=== PATIENT | female | born 1960 | race Caucasian/White ===

== ENCOUNTER 2018-06-03 19:26 | Emergency (ER) | payer BC ==
[~2018-06-03] VITALS: Ht 160 cm; Wt 92.0 kg
--- NOTE | 2018-06-03 19:58 | NUR ---
pt presents to ED with c/o epigastric pain x 1 year that she states gets worse every few weeks then diminishes. pt reports pain has flared again today. pt reports having a thorough GI workup including endoscopy for this complaint, with no findings so far. bp and spo2 monitors placed, call light in reach, awaiting MD and orders at this time.
--- NOTE | 2018-06-03 21:00 | NUR ---
ERP Jessee at bedside to assess pt, awaiting orders at this time.
[2018-06-03 21:44] VITALS: BP 170/100
--- NOTE | 2018-06-03 21:44 | NUR ---
LATE ENTRY FOR 06/04 2143: PT GIVEN DC INSTRUCTIONS, PT A&O, RESPS EVEN AND UNLABORED. DC BP 170/100 REVIEWED WITH ERP ANA, PT DENIES HEADACHE, CP/SOB. PT STATES "MY BLOOD PRESSURE IS ALWAYS THAT HIGH WHEN I'M AT THE DOCTOR, IT'S BECAUSE I'M IN PAIN." ERP OK'D RN TO DC PT. PT AMB TO DC WITH STEADY GAIT, ACCOMPANIED BY .
== END 2018-06-03 21:46 | disposition home or self-care (01) ==
LOC: ED 21:20
DX: G89.29 Other chronic pain (principal); R10.13 Epigastric pain
CPT/HCPCS: 93005; 99283

== ENCOUNTER 2018-06-08 09:56 | Emergency (ER) | payer BC ==
[~2018-06-08] VITALS: Ht 160 cm; Wt 95.0 kg
--- NOTE | 2018-06-08 11:44 | NUR ---
PT AMBULATED TO ROOM WITH STEADY GAIT. PT REPORTS EPIGASTRIC PAIN OFF AND ON FOR A LONG TIME. REPORTS DIZZINESS SINCE LAST NIGHT. REPORTS FALLING AND HITTING RIGHT EYE. SMALL BRUISE AND ABRASION ABOVE RIGHT EYE. C/O BACK ACH AND CRAMER. PT IS ALERT, ORIENTED, WITH NAD.
--- NOTE | 2018-06-08 12:46 | NUR ---
UA sent to lab. No other needs.
[2018-06-08 12:52] LABS: BASOPHILS # (AUTO) 0.05 x10^3/uL (0-0.1); BASOPHILS % (AUTO) 0 % (0-1); EOSINOPHILS % (AUTO) 2 % (1-7); LYMPHOCYTES % (AUTO) 16 % (22-44); MD NO; MEAN CORPUSCULAR HEMOGLOBIN 27.9 pg (27.0-34.8); MEAN CORPUSCULAR VOLUME 87.1 fL (80-100); MEAN PLATELET VOLUME 10.6 fL (7.4-10.4); MONOCYTES # (AUTO) 0.62 x10^3/uL (0.2-0.8); MONOCYTES % (AUTO) 5 % (2-9); NEUTROPHILS # (AUTO) 8.95 x10^3/uL (1.8-6.8); NEUTROPHILS % (AUTO) 77 % (42-75); PLATELET COUNT 281 x10^3/uL (130-400); RED BLOOD COUNT 4.56 x10^6/uL (3.82-5.3); RED CELL DISTRIBUTION WIDTH 14.1 % (9.6-15.2)
[2018-06-08 13:08] LABS: ALBUMIN 3.9 g/dL (3.4-5.0); ANION GAP 6 mmol/L (5-15); CALCIUM 9.4 mg/dL (8.5-10.1); CHLORIDE 115 mmol/L (98-107)
[2018-06-08 13:18] LABS: MICROSCOPIC INDICATED
[2018-06-08 13:21] LABS: ALANINE AMINOTRANSFERASE 20 U/L (12-78); ALKALINE PHOSPHATASE 93 U/L (45-117); BILIRUBIN,TOTAL 0.9 mg/dL (0.2-1.0); CREATININE 0.75 mg/dL (0.55-1.02); FREE T4 (FREE THYROXINE) 1.05 ng/dL (0.76-1.46); TOTAL PROTEIN 7.2 g/dL (6.4-8.2)
[2018-06-08 13:26] LABS: CULTURE INDICATED? NO
--- NOTE | 2018-06-08 13:36 | NUR ---
Pt is off the floor to radiology.
--- NOTE | 2018-06-08 13:46 | NUR ---
PT IS BACK FROM RADIOLOGY. PT AMBULATED TO THE BATHROOM WITH STEADY GAIT.
[2018-06-08 15:07] VITALS: BP 158/95
--- NOTE | 2018-06-08 15:26 | NUR ---
Patient given discharge instructions and they have confirmed that they understand the instructions. Patient ambulatory with steady gait.
== END 2018-06-08 15:28 | disposition home or self-care (01) ==
LOC: ED 12:44
DX: G89.29 Other chronic pain (principal); R10.13 Epigastric pain; R42 Dizziness and giddiness; I10 Essential (primary) hypertension
CPT/HCPCS: 36415; 70450; 80053; 81001; 83690; 84439; 84443; 85025; 93005; 99284

== ENCOUNTER 2018-07-09 10:31 | Emergency (ER) | payer BC ==
[~2018-07-09] VITALS: Ht 160 cm; Wt 97.7 kg
--- NOTE | 2018-07-09 10:54 | NUR ---
Pt ambulates with steady gait and balance to room from triage.
--- NOTE | 2018-07-09 10:59 | NUR ---
Pt resting on [facility] talking with ED PA. Pt c/o "three days of upper abdominal pain, hurts with moving, walking, not with eating, but I am not hungry." Pt's spouse at bedside. Per pt, "I saw Dr. Vera, on the I am suppose to do a gastric emptying study, and he said I will probably have to have an exploratory surgery. This is a reoccuring issue, it started over a year ago and I have had to come back at least 10 times." NADN. All safety measurs in place. Call light within reach. Pt connected to monitoring manager, NIBP, and continous pulse ox. Pt denies diarrhea, cp, sob, trauma, or syncope.
[2018-07-09] MEDS ORDERED: ZOLP10TA5 PO (11:06)
[2018-07-09] MEDS ORDERED: OMEP40CA6 PO (11:06)
[2018-07-09] MEDS ORDERED: LOSA25TA25 PO (11:06)
[2018-07-09] MEDS ORDERED: HYDROmorphone 1 MG/ML, 1ML VIAL ONE (11:09)
[2018-07-09] MEDS ORDERED: ONDANSETRON 2MG/ML, 2ML ONE (11:09)
[2018-07-09] MEDS ORDERED: HYDROmorphone 2 MG/ML, 1ML IVPush PRN (11:30)
[2018-07-09] MEDS ORDERED: ONDANSETRON 2MG/ML, 2ML IVPush ONE (11:30)
[2018-07-09 11:41] LABS: BASOPHILS # (AUTO) 0.06 x10^3/uL (0-0.1); BASOPHILS % (AUTO) 1 % (0-1); EOSINOPHILS # (AUTO) 0.06 x10^3/uL (0-0.4); EOSINOPHILS % (AUTO) 1 % (1-7); LYMPHOCYTES # (AUTO) 1.41 x10^3/uL (1-3.4); LYMPHOCYTES % (AUTO) 12 % (22-44); MD NO; MEAN CORPUSCULAR HEMOGLOBIN 27.7 pg (27.0-34.8); MEAN CORPUSCULAR HGB CONC 32.1 g/dL (32.4-35.8); MEAN CORPUSCULAR VOLUME 86.3 fL (80-100); MEAN PLATELET VOLUME 10.9 fL (7.4-10.4); MONOCYTES # (AUTO) 0.47 x10^3/uL (0.2-0.8); MONOCYTES % (AUTO) 4 % (2-9); NEUTROPHILS # (AUTO) 9.89 x10^3/uL (1.8-6.8); NEUTROPHILS % (AUTO) 83 % (42-75); PLATELET COUNT 335 x10^3/uL (130-400); RED BLOOD COUNT 4.38 x10^6/uL (3.82-5.3)
[2018-07-09 11:49] LABS: ALANINE AMINOTRANSFERASE 17 U/L (12-78); ALBUMIN 3.8 g/dL (3.4-5.0); ANION GAP 6 mmol/L (5-15); CALCIUM 8.7 mg/dL (8.5-10.1); CHLORIDE 110 mmol/L (98-107); CREATININE 0.92 mg/dL (0.55-1.02)
[2018-07-09 11:53] LABS: ALKALINE PHOSPHATASE 89 U/L (45-117); BILIRUBIN,TOTAL 0.4 mg/dL (0.2-1.0); TOTAL PROTEIN 6.9 g/dL (6.4-8.2)
--- NOTE | 2018-07-09 12:39 | NUR ---
TESSA RN - PT RESTING ON [facility]. FAMILY AT [facility]. CALL LIGHT IN REACH. CP MONITORS IN PLACE. ALL COCNERNS ADRESSED.
[2018-07-09 12:51] LABS: MICROSCOPIC NOT IND
[2018-07-09 12:58] LABS: CULTURE INDICATED? NO
--- NOTE | 2018-07-09 13:28 | NUR ---
Patient given discharge instructions and they have confirmed that they understand the instructions. Patient ambulatory with steady gait. Pt left with all personal belongings, discharge paperwork, and prescriptions.
[2018-07-09 13:29] VITALS: BP 148/82
== END 2018-07-09 14:14 | disposition home or self-care (01) ==
LOC: ED 10:58
DX: R10.13 Epigastric pain (principal); R11.0 Nausea; I10 Essential (primary) hypertension
CPT/HCPCS: 36415; 80053; 81003; 83690; 85025; 96374; 96375; 99283; J1170; J2405

== ENCOUNTER 2018-07-10 07:42 | Emergency (ER) | payer BC ==
[~2018-07-10] VITALS: Ht 160 cm; Wt 97.0 kg
[~2018-07-10 07:42] MED LIST: LOSA25TA25 PO; OMEP40CA6 PO; ZOLP10TA5 PO
--- NOTE | 2018-07-10 08:12 | NUR ---
First contact with pt. Pt states, "I took three of the pepcids this morning already. I am not vomiting, just dry heaving, and I havn't drank much water." NADN. Pt connected to NIBP and continous pulse ox. Pt denies cp, sob, vomiting, diarrhea, syncope, diaphoresis. Pt was here yesterday for same issue. All safety measures in place. Call light within reach. Warm blanket provided for comfort measures.
[2018-07-10] MEDS ORDERED: HYDROmorphone 2 MG/ML, 1ML IVPush PRN (08:30)
[2018-07-10] MEDS ORDERED: ONDANSETRON 2MG/ML, 2ML IVPush ONE (08:30)
[2018-07-10] MEDS ORDERED: SODIUM CHLORIDE FLUSH 10ML SYR IVF ONE (08:30)
[2018-07-10] MEDS ORDERED: ONDANSETRON 2MG/ML, 2ML ONE (08:45)
[2018-07-10] MEDS ORDERED: HYDROmorphone 1 MG/ML, 1ML VIAL ONE (08:45)
--- NOTE | 2018-07-10 08:58 | NUR ---
Pt ambulates to restroom with steady gait and balance. NADN. No needs expressed.
--- NOTE | 2018-07-10 09:09 | NUR ---
Provided medication per EMAR. Pt states medication is "providing help". No vomiting or dry-heaving observed at bedside. NADN. Pt connected to NIBP and continous pulse ox. Call light within reach. All safety measures in place.
[2018-07-10 09:15] LABS: BASOPHILS # (AUTO) 0.05 x10^3/uL (0-0.1); BASOPHILS % (AUTO) 1 % (0-1); EOSINOPHILS # (AUTO) 0.27 x10^3/uL (0-0.4); EOSINOPHILS % (AUTO) 4 % (1-7); LYMPHOCYTES # (AUTO) 1.47 x10^3/uL (1-3.4); LYMPHOCYTES % (AUTO) 19 % (22-44); MD NO; MEAN CORPUSCULAR HEMOGLOBIN 28.3 pg (27.0-34.8); MEAN CORPUSCULAR HGB CONC 32.6 g/dL (32.4-35.8); MEAN CORPUSCULAR VOLUME 86.8 fL (80-100); MEAN PLATELET VOLUME 11.1 fL (7.4-10.4); MONOCYTES # (AUTO) 0.43 x10^3/uL (0.2-0.8); MONOCYTES % (AUTO) 6 % (2-9); NEUTROPHILS # (AUTO) 5.37 x10^3/uL (1.8-6.8); NEUTROPHILS % (AUTO) 71 % (42-75); PLATELET COUNT 283 x10^3/uL (130-400); RED BLOOD COUNT 4.48 x10^6/uL (3.82-5.3); RED CELL DISTRIBUTION WIDTH 14.9 % (9.6-15.2)
--- NOTE | 2018-07-10 09:20 | NUR ---
Urine sent to lab.
[2018-07-10 09:24] LABS: ALBUMIN 3.9 g/dL (3.4-5.0); ANION GAP 7 mmol/L (5-15); CALCIUM 9.2 mg/dL (8.5-10.1); CHLORIDE 109 mmol/L (98-107)
[2018-07-10 09:28] LABS: ALANINE AMINOTRANSFERASE 19 U/L (12-78); ALKALINE PHOSPHATASE 105 U/L (45-117); BILIRUBIN,TOTAL 0.8 mg/dL (0.2-1.0); CREATININE 0.82 mg/dL (0.55-1.02); TOTAL PROTEIN 7.5 g/dL (6.4-8.2)
[2018-07-10 09:29] LABS: MICROSCOPIC AUTO
[2018-07-10 09:32] LABS: CULTURE INDICATED? NO
[2018-07-10 11:15] VITALS: BP 129/83
== END 2018-07-10 11:18 | disposition home or self-care (01) ==
LOC: ED 10:15
DX: G89.29 Other chronic pain (principal); R10.13 Epigastric pain; R11.0 Nausea; Z90.49 Acquired absence of other specified parts of digestive tract; I10 Essential (primary) hypertension
CPT/HCPCS: 36415; 80053; 81001; 83690; 85025; 96374; 96375; 99283; J1170; J2405

== ENCOUNTER 2018-07-25 09:50 | Emergency (ER) | payer BC ==
[~2018-07-25] VITALS: Ht 160 cm; Wt 98.5 kg
--- NOTE | 2018-07-25 10:17 | NUR ---
FIRST CONTACT WITH PT. Pt changing into gown. Pt is AOX4, steady gait and balance. NADN. No needs expressed at this time. Will return to room when pt is finished getting dressed.
--- NOTE | 2018-07-25 10:19 | NUR ---
Pt resting on [facility]. Pt states, "last night I started getting pain in my abdomen and nausea. I am cold all the time. The pain comes and goes. My pain is a 9 right now. Movement makes it worse. I had my gallbladder removed and a gastric bypass. I have had two pregnancies. I had an MRI yesterday. I had the MRI because of falling a couple of times when I have had this pain, the CT showed a lesion. They gave me contrast." ED PA at bedside. PT connected to NIBP and continous pulse ox. Warm blanket provided for comfort measures. Call light within reach.
[2018-07-25] MEDS ORDERED: SODIUM CHLORIDE FLUSH 10ML SYR IVF ONE (10:30)
[2018-07-25] MEDS ORDERED: ONDANSETRON 2MG/ML, 2ML IVPush ONE (10:30)
[2018-07-25] MEDS ORDERED: HYDROmorphone 1 MG/ML, 1ML VIAL ONE ×3 (10:33→14:32)
[2018-07-25] MEDS ORDERED: ONDANSETRON 2MG/ML, 2ML ONE (10:33)
[2018-07-25] MEDS: HYDROmorphone 2 MG/ML, 1ML IVPush PRN ×2 (10:41→12:12)
[2018-07-25 11:04] LABS: ALANINE AMINOTRANSFERASE 18 U/L (12-78); ALBUMIN 3.5 g/dL (3.4-5.0); ANION GAP 5 mmol/L (5-15); BASOPHILS # (AUTO) 0.02 x10^3/uL (0-0.1); BASOPHILS % (AUTO) 0 % (0-1); CALCIUM 9.1 mg/dL (8.5-10.1); CHLORIDE 114 mmol/L (98-107); CREATININE 0.78 mg/dL (0.55-1.02); EOSINOPHILS # (AUTO) 0.04 x10^3/uL (0-0.4); EOSINOPHILS % (AUTO) 1 % (1-7); LYMPHOCYTES # (AUTO) 1.23 x10^3/uL (1-3.4); LYMPHOCYTES % (AUTO) 19 % (22-44); MD NO; MEAN CORPUSCULAR HEMOGLOBIN 27.6 pg (27.0-34.8); MEAN CORPUSCULAR HGB CONC 32.5 g/dL (32.4-35.8); MEAN CORPUSCULAR VOLUME 85.1 fL (80-100); MEAN PLATELET VOLUME 11.2 fL (7.4-10.4); MONOCYTES % (AUTO) 6 % (2-9); NEUTROPHILS # (AUTO) 4.83 x10^3/uL (1.8-6.8); NEUTROPHILS % (AUTO) 74 % (42-75); PLATELET COUNT 242 x10^3/uL (130-400); RED BLOOD COUNT 4.11 x10^6/uL (3.82-5.3)
[2018-07-25 11:06] LABS: ALKALINE PHOSPHATASE 88 U/L (45-117); BILIRUBIN,TOTAL 0.7 mg/dL (0.2-1.0); TOTAL PROTEIN 6.6 g/dL (6.4-8.2)
[2018-07-25] MEDS ORDERED: OMNIPAQUE 350 MG/ML, 100ML BOTTLE ONE (11:38)
[2018-07-25] MEDS ORDERED: KETOROLAC 30 MG/1 ML ONE (12:08)
[2018-07-25] MEDS ORDERED: KETOROLAC 30 MG/1 ML IVPush ONE (12:30)
--- NOTE | 2018-07-25 12:56 | NUR ---
LUNCH RN: JUANITO COLLECTED AND SENT TO LAB. VSS. FAMILY AT BESIDE, CALL LIGHT WITHIN REACH. AWAITING RECHECK AND DISPO AT THIS TIME
[2018-07-25 13:07] LABS: MICROSCOPIC NOT IND
[2018-07-25 13:09] VITALS: BP 143/69
[2018-07-25 13:10] LABS: CULTURE INDICATED? NO
--- NOTE | 2018-07-25 13:10 | NUR ---
Pt resting on brittany. Waiting for UA labs to results. ANA. Pt has call light within reach. No needs expressed at this time.
--- NOTE | 2018-07-25 14:40 | NUR ---
Provided pt medication per EMAR. Pt appreciative. Pt dressed. Provided pt education, prescription, and discharge paperwork. Answered pt's questions. All questions answered. NADN. Pt on SPO2% AT 95% RA.
--- NOTE | 2018-07-25 14:41 | NUR ---
Pt states verbal understanding.
[2018-07-25] MEDS ORDERED: HYDROmorphone 2 MG/ML, 1ML IV ONE (15:00)
[2018-07-26] MEDS ORDERED: FAMO20TA37 PO (05:54)
[2018-07-26] MEDS ORDERED: ESTR1TAB7 PO (05:54)
== END 2018-07-25 15:00 | disposition home or self-care (01) ==
LOC: ED 13:47
DX: R10.11 Right upper quadrant pain (principal); R10.13 Epigastric pain; I10 Essential (primary) hypertension; Z88.6 Allergy status to analgesic agent
CPT/HCPCS: 36415; 71046; 74177; 80053; 81003; 83690; 85025; 96374; 96375; 96376; 99284; J1170; J1885; J2405; Q9967

== ENCOUNTER 2018-07-26 05:07 | Emergency (ER) | payer BC ==
[~2018-07-26] VITALS: Ht 160 cm; Wt 98.2 kg
[2018-07-26] MEDS ORDERED: DICYCLOMINE 10 MG/ML, 2ML IM ONE (05:30)
[2018-07-26] MEDS ORDERED: MAALOX/HYOSCYAMINE/LIDOCAINE 45 ML BTL PO ONE (05:30)
[2018-07-26] MEDS ORDERED: PROMETHAZINE 25 MG/ML, 1ML IM ONE (05:30)
[2018-07-26] MEDS ORDERED: DICYCLOMINE 10 MG/ML, 2ML ONE (05:44)
[2018-07-26] MEDS ORDERED: MAALOX/HYOSCYAMINE/LIDOCAINE 45 ML BTL ONE (05:44)
[2018-07-26] MEDS ORDERED: PROMETHAZINE 25 MG/ML, 1ML ONE (05:44)
[2018-07-26] MEDS ORDERED: FAMO20TA37 PO (05:54)
[2018-07-26] MEDS ORDERED: ESTR1TAB7 PO (05:54)
--- NOTE | 2018-07-26 06:03 | NUR ---
PT MEDICATED FOR PAIN AND NAUSEA PER EMAR. PT PLACED ON VITALS MONITORS. PT IN HOSPITAL GOWN. WILL CONTINUE TO MONITOR.
[2018-07-26] MEDS ORDERED: SUCRALFATE 1 GM/10 ML UDC PO SCH (07:00)
[2018-07-26 07:08] VITALS: BP 122/78
--- NOTE | 2018-07-26 07:09 | NUR ---
PATIENT ABLE TO KEEP PO FLUIDS DOWN. PATIENT REQUESTED NARCOTICS, ASKED MD AND NOT ADVISED AT THIS TIME. PATIENT D/C TEACHING REVIEWED AND SHOWS UNDERSTANDING, REVIEWED GI APPT TOMORROW AND RX CARAFATE. LEFT WITH
== END 2018-07-26 07:11 | disposition home or self-care (01) ==
LOC: ED 05:33
DX: G89.29 Other chronic pain (principal); R10.13 Epigastric pain; I10 Essential (primary) hypertension; Z90.49 Acquired absence of other specified parts of digestive tract
CPT/HCPCS: 93005; 96372; 99283; J0500; J2550

== ENCOUNTER 2018-08-26 15:11 | Emergency (ER) | payer BC ==
[~2018-08-26] VITALS: Ht 160 cm; Wt 97.3 kg
[~2018-08-26 15:11] MED LIST changes: +ESTR1TAB7 PO; +FAMO20TA37 PO
[2018-08-26 16:02] LABS: BASOPHILS # (AUTO) 0.04 x10^3/uL (0-0.1); BASOPHILS % (AUTO) 1 % (0-1); EOSINOPHILS # (AUTO) 0.03 x10^3/uL (0-0.4); EOSINOPHILS % (AUTO) 0 % (1-7); LYMPHOCYTES # (AUTO) 0.89 x10^3/uL (1-3.4); LYMPHOCYTES % (AUTO) 13 % (22-44); MD NO; MEAN CORPUSCULAR HEMOGLOBIN 28.1 pg (27.0-34.8); MEAN CORPUSCULAR HGB CONC 32.5 g/dL (32.4-35.8); MEAN CORPUSCULAR VOLUME 86.4 fL (80-100); MEAN PLATELET VOLUME 10.8 fL (7.4-10.4); MONOCYTES # (AUTO) 0.37 x10^3/uL (0.2-0.8); MONOCYTES % (AUTO) 5 % (2-9); NEUTROPHILS % (AUTO) 81 % (42-75); PLATELET COUNT 254 x10^3/uL (130-400); RED BLOOD COUNT 4.75 x10^6/uL (3.82-5.3)
[2018-08-26 16:05] LABS: ALANINE AMINOTRANSFERASE 18 U/L (12-78); ALBUMIN 3.9 g/dL (3.4-5.0); ANION GAP 10 mmol/L (5-15); CALCIUM 9.6 mg/dL (8.5-10.1); CHLORIDE 110 mmol/L (98-107)
[2018-08-26 16:08] LABS: ALKALINE PHOSPHATASE 102 U/L (45-117); BILIRUBIN,TOTAL 0.4 mg/dL (0.2-1.0); CREATININE 0.81 mg/dL (0.55-1.02); TOTAL PROTEIN 7.8 g/dL (6.4-8.2)
--- NOTE | 2018-08-26 16:13 | NUR ---
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
--- NOTE | 2018-08-26 16:24 | NUR ---
Pt presents from home for return of chronic upper abd pain and nausea. Pt states extensive W/U here and at [facility] with no dx. Has follow up. No vomiting or diarrhea. hypertensive.
[2018-08-26] MEDS ORDERED: SODIUM CHLORIDE 0.9% 1,000 ML IV ONE (16:26)
[2018-08-26] MEDS ORDERED: SODIUM CHLORIDE 0.9% 1,000ML IVBOLUS ONE (16:30)
[2018-08-26] MEDS ORDERED: HYDROmorphone 2 MG/ML, 1ML IVPush PRN (16:30)
[2018-08-26] MEDS ORDERED: SODIUM CHLORIDE FLUSH 10ML SYR IVF ONE (16:30)
[2018-08-26] MEDS ORDERED: ONDANSETRON 2MG/ML, 2ML IVPush ONE (16:30)
[2018-08-26] MEDS ORDERED: ONDANSETRON 2MG/ML, 2ML ONE (16:39)
[2018-08-26] MEDS ORDERED: HYDROmorphone 2 MG/ML, 1ML ONE (16:41)
[2018-08-26 16:45] LABS: MICROSCOPIC INDICATED
[2018-08-26 17:05] LABS: CULTURE INDICATED? YES
[2018-08-26 17:23] VITALS: BP 124/66
== END 2018-08-26 18:39 | disposition home or self-care (01) ==
LOC: ED 16:29
DX: G89.29 Other chronic pain (principal); R10.84 Generalized abdominal pain; I10 Essential (primary) hypertension; Z90.49 Acquired absence of other specified parts of digestive tract
CPT/HCPCS: 36415; 80053; 81001; 83690; 85025; 87077; 87086; 87186; 96374; 96375; 99283; J1170; J2405; J7030

== ENCOUNTER 2019-05-22 00:11 | Emergency (ER) | payer BC ==
[~2019-05-22] VITALS: Ht 160 cm; Wt 106.6 kg
[~2019-05-22 00:11] MED LIST changes: +OMEP40CA42 PO; -OMEP40CA6 PO
[2019-05-22] MEDS ORDERED: SODIUM CHLORIDE 0.9% 1,000ML IVBOLUS ONE ×2 (01:00→03:00)
[2019-05-22] MEDS ORDERED: ONDANSETRON 2MG/ML, 2ML IVPush ONE (01:00)
[2019-05-22] MEDS ORDERED: SODIUM CHLORIDE FLUSH 10ML SYR IVF ONE (01:00)
[2019-05-22] MEDS ORDERED: PANTOPRAZOLE 40 MG IV IVPush SCH (01:00)
[2019-05-22] MEDS ORDERED: FAMOTIDINE 20 MG/2 ML IV ONE (01:00)
[2019-05-22] MEDS ORDERED: ONDANSETRON 2MG/ML, 2ML ONE (01:21)
[2019-05-22] MEDS ORDERED: FAMOTIDINE 20 MG/2 ML ONE (01:21)
[2019-05-22] MEDS ORDERED: PANTOPRAZOLE 40 MG IV ONE (01:21)
[2019-05-22 01:29] LABS: BASOPHILS % (AUTO) 1 % (0-1); EOSINOPHILS # (AUTO) 0.08 x10^3/uL (0-0.4); EOSINOPHILS % (AUTO) 1 % (1-7); LYMPHOCYTES # (AUTO) 1.33 x10^3/uL (1-3.4); LYMPHOCYTES % (AUTO) 17 % (22-44); MD NO; MEAN CORPUSCULAR HEMOGLOBIN 29.4 pg (27.0-34.8); MEAN CORPUSCULAR HGB CONC 33.3 g/dL (32.4-35.8); MEAN CORPUSCULAR VOLUME 88.1 fL (80-100); MEAN PLATELET VOLUME 9.2 fL (7.4-10.4); MONOCYTES # (AUTO) 0.23 x10^3/uL (0.2-0.8); MONOCYTES % (AUTO) 3 % (2-9); NEUTROPHILS % (AUTO) 78 % (42-75); PLATELET COUNT 176 x10^3/uL (130-400); RED BLOOD COUNT 3.78 x10^6/uL (3.82-5.3); RED CELL DISTRIBUTION WIDTH 18.2 % (9.6-15.2)
[2019-05-22 01:37] LABS: ALANINE AMINOTRANSFERASE 25 U/L (12-78); ALBUMIN 2.9 g/dL (3.4-5.0); ANION GAP 11 mmol/L (5-15); CALCIUM 8.4 mg/dL (8.5-10.1); CHLORIDE 111 mmol/L (98-107); CREATININE 0.65 mg/dL (0.55-1.02)
[2019-05-22 01:39] LABS: ALKALINE PHOSPHATASE 103 U/L (45-117); BILIRUBIN,TOTAL 0.6 mg/dL (0.2-1.0); TOTAL PROTEIN 6.1 g/dL (6.4-8.2)
[2019-05-22 02:21] LABS: MICROSCOPIC NOT IND
[2019-05-22 02:24] LABS: CULTURE INDICATED? NO
[2019-05-22] MEDS ORDERED: PROCHLORPERAZINE 5 MG/ML, 2ML ONE (02:58)
[2019-05-22] MEDS ORDERED: PROCHLORPERAZINE 5 MG/ML, 2ML IVPush ONE (03:00)
[2019-05-22 03:02] VITALS: BP 145/75
--- NOTE | 2019-05-22 03:43 | NUR ---
Pt states compazine is helping, will continue to monitor during IV therapy. Pt onboard to be dc'd home after fluids.
== END 2019-05-22 04:05 | disposition home or self-care (01) ==
LOC: ED 03:11
DX: R11.2 Nausea with vomiting, unspecified (principal); R19.7 Diarrhea, unspecified; E86.0 Dehydration; I10 Essential (primary) hypertension; Z90.49 Acquired absence of other specified parts of digestive tract
CPT/HCPCS: 36415; 74176; 80053; 81003; 83690; 85025; 96361; 96374; 96375; 99284; C9113; J0780; J2405; J3490; J7030

== ENCOUNTER 2019-12-07 19:34 | Inpatient (IN) | payer BC, MEDICAID ==
[~2019-12-07] VITALS: Ht 157.5 cm; Wt 130.6 kg
[2019-12-07 20:26] LABS: MICROSCOPIC AUTO
[2019-12-07] MEDS ORDERED: DOCUSATE 100 MG CAPSULE PO PRN (21:00)
[2019-12-07] MEDS ORDERED: ONDANSETRON ODT 4 MG PO PRN (21:00)
[2019-12-07] MEDS ORDERED: LORazepam 2 MG/ML, 1ML IV PRN ×3 (21:00)
[2019-12-07] MEDS ORDERED: ONDANSETRON 2MG/ML, 2ML IVPush PRN (21:00)
[2019-12-07] MEDS: MAGNESIUM CHLORIDE 64 MG TABLET.DR PO SCH (21:52)
[2019-12-07] MEDS: POTASSIUM CHLORIDE 20 MEQ, MAGNESIUM SULFATE 1 GM, THIAMINE 200 MG, FOLIC ACID 1 MG, MV... IV SCH (21:57)
--- NOTE | 2019-12-07 22:10 | NUR ---
REPORT GIVEN TO BONNY PARNELL.
[2019-12-08] MEDS ORDERED: GABAPENTIN 300 MG CAPSULE ONE (00:04)
[2019-12-08] MEDS: GABAPENTIN 300 MG CAPSULE PO SCH ×2 (00:07→08:53)
[2019-12-08 02:43] VITALS: BP 173/97
[2019-12-08] MEDS: LORazepam 2 MG/ML, 1ML IV PRN ×4 (03:03→20:53)
[2019-12-08 06:11] LABS: CHLORIDE 111 mmol/L (98-107)
[2019-12-08 06:19] LABS: ANION GAP 9 mmol/L (5-15); CALCIUM 8.9 mg/dL (8.5-10.1); CREATININE 0.72 mg/dL (0.55-1.02)
[2019-12-08 06:50] VITALS: BP 177/86
[2019-12-08 07:30] VITALS: BP 162/87
[2019-12-08 08:22] LABS: BASOPHILS # (AUTO) 0.02 x10^3/uL (0-0.1); BASOPHILS % (AUTO) 1 % (0-1); EOSINOPHILS # (AUTO) 0.09 x10^3/uL (0-0.4); EOSINOPHILS % (AUTO) 3 % (1-7); LYMPHOCYTES % (AUTO) 15 % (22-44); MD SCAN; MEAN CORPUSCULAR HEMOGLOBIN 28.3 pg (27.0-34.8); MEAN CORPUSCULAR HGB CONC 30.7 g/dL (32.4-35.8); MEAN CORPUSCULAR VOLUME 92.1 fL (80-100); MEAN PLATELET VOLUME 8.8 fL (7.4-10.4); MONOCYTES # (AUTO) 0.29 x10^3/uL (0.2-0.8); MONOCYTES % (AUTO) 9 % (2-9); NEUTROPHILS # (AUTO) 2.52 x10^3/uL (1.8-6.8); NEUTROPHILS % (AUTO) 74 % (42-75); PLATELET COUNT 69 x10^3/uL (130-400); RED BLOOD COUNT 3.98 x10^6/uL (3.82-5.3); RED CELL DISTRIBUTION WIDTH 20.6 % (9.6-15.2)
[2019-12-08] MEDS: MAGNESIUM CHLORIDE 64 MG TABLET.DR PO SCH ×3 (08:52→20:47)
[2019-12-08] MEDS ORDERED: PREG150C PO (10:22)
[2019-12-08] MEDS ORDERED: ALBU90AE2 INH (10:22)
[2019-12-08 12:27] VITALS: BP 154/96
[2019-12-08] MEDS: IBUPROFEN 200 MG TABLET PO PRN (13:35)
[2019-12-08] MEDS: PREGABALIN 150 MG CAPSULE PO SCH ×2 (16:01→20:47)
[2019-12-08 16:50] VITALS: BP_SYST 142; BP_SYST 146; BP_DIAS 116; BP_DIAS 74
[2019-12-08] MEDS: ALBUTEROL HFA 90 MCG/SPRAY INH PRN (16:56)
[2019-12-08 18:53] VITALS: BP 105/63
[2019-12-08] MEDS ORDERED: ZOLPIDEM 10MG TABLET PO PRN (21:30)
[2019-12-08] MEDS: POTASSIUM CHLORIDE 20 MEQ, MAGNESIUM SULFATE 1 GM, THIAMINE 200 MG, FOLIC ACID 1 MG, MV... IV SCH (21:35)
[2019-12-09] VITALS (7 sets, daily range): BP systolic 136–178; BP diastolic 62–91
[2019-12-09] MEDS: LORazepam 2 MG/ML, 1ML IV PRN ×4 (01:45→04:49)
[2019-12-09] MEDS ORDERED: LORazepam 1MG TABLET PO PRN ×4 (03:00)
[2019-12-09] MEDS ORDERED: LORazepam 0.5MG TABLET PO PRN (03:00)
[2019-12-09] MEDS: LABETALOL 5MG/ML, 20ML IVPush PRN ×2 (03:51→17:39)
[2019-12-09 05:37] LABS: ALANINE AMINOTRANSFERASE 88 U/L (12-78); ALBUMIN 3.1 g/dL (3.4-5.0); ANION GAP 8 mmol/L (5-15); CALCIUM 8.8 mg/dL (8.5-10.1); CHLORIDE 110 mmol/L (98-107)
[2019-12-09 05:42] LABS: ALKALINE PHOSPHATASE 70 U/L (45-117); BILIRUBIN,TOTAL 0.8 mg/dL (0.2-1.0); CREATININE 0.63 mg/dL (0.55-1.02); TOTAL PROTEIN 5.6 g/dL (6.4-8.2)
[2019-12-09 06:32] LABS: MD YES; MEAN CORPUSCULAR HEMOGLOBIN 28.6 pg (27.0-34.8); MEAN CORPUSCULAR HGB CONC 31.8 g/dL (32.4-35.8); MEAN CORPUSCULAR VOLUME 89.9 fL (80-100); MEAN PLATELET VOLUME 9.1 fL (7.4-10.4); PLATELET COUNT 65 x10^3/uL (130-400); RED BLOOD COUNT 3.59 x10^6/uL (3.82-5.3)
[2019-12-09 06:35] LABS: BASOS#(MANUAL) 0.04 x10^3/uL (0-0.1); BASOS% (MANUAL) 1 % (0-1); EOS#(MANUAL) 0.11 x10^3/uL (0.0-0.4); EOS% (MANUAL) 3 % (1-7); LYMPH#(MANUAL) 0.42 x10^3/uL (1-3.4); LYMPHS% (MANUAL) 12 % (22-44); MONOS#(MANUAL) 0.18 x10^3/uL (0.3-2.7); MONOS% (MANUAL) 5 % (2-9); SEG#(MANUAL) 2.77 x10^3/uL (1.8-6.8); SEGS% (MANUAL) 79 % (42-75)
[2019-12-09 06:36] LABS: <PLATELET ESTIMATE> DECREASED; <PLT MORPHOLOGY> NORMAL PLT MORPH; ANISOCYTOSIS 1+; POLYCHROMASIA 1+
[2019-12-09] MEDS ORDERED: POTASSIUM CHLORIDE 40 MEQ in SODIUM CHLORIDE 0.9% 500 ML IV ONE (08:00)
[2019-12-09] MEDS: CHLORDIAZEPOXIDE 10 MG CAPSULE PO SCH ×3 (08:30→20:37)
[2019-12-09] MEDS: LOSARTAN 25MG TABLET PO SCH (08:30)
[2019-12-09] MEDS: MAGNESIUM CHLORIDE 64 MG TABLET.DR PO SCH ×3 (08:30→20:38)
[2019-12-09] MEDS: PREGABALIN 150 MG CAPSULE PO SCH ×3 (08:31→20:38)
[2019-12-09] MEDS: CHLORDIAZEPOXIDE 25 MG CAPSULE PO SCH ×3 (08:31→20:38)
[2019-12-09] MEDS: ALBUTEROL HFA 90 MCG/SPRAY INH PRN (18:37)
[2019-12-10] MEDS: CHLORDIAZEPOXIDE 25 MG CAPSULE PO SCH (02:00)
[2019-12-10] MEDS: CHLORDIAZEPOXIDE 10 MG CAPSULE PO SCH ×4 (02:00→20:47)
[2019-12-10 02:30] VITALS: BP 136/85
[2019-12-10 06:30] LABS: ANION GAP 7 mmol/L (5-15); CALCIUM 9.6 mg/dL (8.5-10.1); CHLORIDE 111 mmol/L (98-107)
[2019-12-10 06:52] VITALS: BP 134/83
[2019-12-10 07:14] LABS: MD YES; MEAN CORPUSCULAR HEMOGLOBIN 28.6 pg (27.0-34.8); MEAN CORPUSCULAR HGB CONC 31.7 g/dL (32.4-35.8); MEAN CORPUSCULAR VOLUME 90.2 fL (80-100); PLATELET COUNT 75 x10^3/uL (130-400); RED BLOOD COUNT 4.08 x10^6/uL (3.82-5.3); RED CELL DISTRIBUTION WIDTH 21.3 % (9.6-15.2)
[2019-12-10 07:16] LABS: <PLATELET ESTIMATE> DECREASED; <PLT MORPHOLOGY> NORMAL PLT MORPH; ANISOCYTOSIS 1+; EOS#(MANUAL) 0.09 x10^3/uL (0.0-0.4); EOS% (MANUAL) 2 % (1-7); LYMPH#(MANUAL) 0.84 x10^3/uL (1-3.4); LYMPHS% (MANUAL) 19 % (22-44); MONOS#(MANUAL) 0.22 x10^3/uL (0.3-2.7); MONOS% (MANUAL) 5 % (2-9); POLYCHROMASIA 1+; SEG#(MANUAL) 3.26 x10^3/uL (1.8-6.8); SEGS% (MANUAL) 74 % (42-75)
[2019-12-10] MEDS: MAGNESIUM CHLORIDE 64 MG TABLET.DR PO SCH ×2 (08:46→14:39)
[2019-12-10] MEDS: PREGABALIN 150 MG CAPSULE PO SCH ×3 (08:47→20:47)
[2019-12-10] MEDS: LOSARTAN 25MG TABLET PO SCH (08:47)
[2019-12-10] MEDS: ALBUTEROL HFA 90 MCG/SPRAY INH PRN (09:01)
[2019-12-10 12:16] VITALS: BP 136/86
[2019-12-10 19:53] VITALS: BP 100/67
[2019-12-11 00:30] VITALS: BP 118/75
[2019-12-11] MEDS: CHLORDIAZEPOXIDE 10 MG CAPSULE PO SCH (02:30)
[2019-12-11 05:42] LABS: CHLORIDE 112 mmol/L (98-107)
[2019-12-11 05:52] LABS: ALANINE AMINOTRANSFERASE 52 U/L (12-78); ALBUMIN 2.6 g/dL (3.4-5.0); ALKALINE PHOSPHATASE 61 U/L (45-117); ANION GAP 7 mmol/L (5-15); BILIRUBIN,TOTAL 0.6 mg/dL (0.2-1.0); CALCIUM 8.9 mg/dL (8.5-10.1); CREATININE 0.65 mg/dL (0.55-1.02); TOTAL PROTEIN 5.2 g/dL (6.4-8.2)
[2019-12-11 06:59] VITALS: BP 111/75
[2019-12-11] MEDS: LOSARTAN 25MG TABLET PO SCH (07:54)
[2019-12-11] MEDS: PREGABALIN 150 MG CAPSULE PO SCH ×3 (07:54→20:50)
[2019-12-11] MEDS ORDERED: GADOTERATE 10 MMOL/20 ML SYR ONE (09:45)
[2019-12-11 12:15] VITALS: BP 116/79
[2019-12-11 18:42] VITALS: BP 125/80
[2019-12-11] MEDS: ALBUTEROL HFA 90 MCG/SPRAY INH PRN (20:35)
[2019-12-12] VITALS (11 sets, daily range): BP systolic 75–144; BP diastolic 48–83
[2019-12-12 05:21] LABS: ANION GAP 4 mmol/L (5-15); CALCIUM 8.9 mg/dL (8.5-10.1); CHLORIDE 113 mmol/L (98-107)
[2019-12-12] MEDS: LOSARTAN 25MG TABLET PO SCH (08:48)
[2019-12-12] MEDS: PREGABALIN 150 MG CAPSULE PO SCH ×3 (08:48→20:07)
[2019-12-12] MEDS: ALBUTEROL HFA 90 MCG/SPRAY INH PRN ×2 (08:55→12:57)
[2019-12-12] MEDS: IBUPROFEN 200 MG TABLET PO PRN (12:57)
[2019-12-12] MEDS ORDERED: SODIUM CHLORIDE 0.9%, 500ML IVBOLUS ONE (19:30)
[2019-12-12] MEDS ORDERED: SODIUM CHLORIDE 0.9% 500 ML IV STA (20:02)
[2019-12-12] MEDS ORDERED: SODIUM CHLORIDE 0.9% 500 ML IV SCH (20:30)
[2019-12-13 01:04] VITALS: BP 109/67
[2019-12-13 07:09] VITALS: BP 118/79
[2019-12-13] MEDS: LOSARTAN 25MG TABLET PO SCH (07:25)
[2019-12-13] MEDS: PREGABALIN 150 MG CAPSULE PO SCH ×3 (07:43→20:28)
[2019-12-13 14:38] VITALS: BP 113/73
[2019-12-13 18:28] VITALS: BP 124/72
[2019-12-14 00:44] VITALS: BP 128/79
[2019-12-14] MEDS: PREGABALIN 150 MG CAPSULE PO SCH (06:12)
[2019-12-14 06:49] VITALS: BP 128/83
[2019-12-14] MEDS: LOSARTAN 25MG TABLET PO SCH (07:52)
[2019-12-14 14:00] VITALS: BP 132/89
[2019-12-14] MEDS: IBUPROFEN 200 MG TABLET PO PRN (17:17)
[2019-12-14 18:38] VITALS: BP 129/80
[2019-12-14] MEDS ORDERED: PREGABALIN 150 MG CAPSULE PO ONE (19:30)
[2019-12-15 00:42] VITALS: BP 105/66
[2019-12-15 07:24] VITALS: BP 153/90
[2019-12-15] MEDS: LOSARTAN 25MG TABLET PO SCH (07:59)
== END 2019-12-15 11:44 | DRG 101 ==
LOC: ED 21:02 → MERGE 21:02 → EDIP 22:00 → 4WST 12-08 02:20
PROVIDERS: ADMIT Family Medicine; ATTEND Family Medicine
DX: R56.9 Unspecified convulsions (principal); F10.239 Alcohol dependence with withdrawal, unspecified; Z20.828 Contact with and (suspected) exposure to other viral communicable diseases; E87.6 Hypokalemia; G89.29 Other chronic pain; I10 Essential (primary) hypertension; K70.10 Alcoholic hepatitis without ascites; M47.26 Other spondylosis with radiculopathy, lumbar region; M48.061 Spinal stenosis, lumbar region without neurogenic claudication; M48.07 Spinal stenosis, lumbosacral region; R09.02 Hypoxemia; Z78.1 Physical restraint status; W18.39XA Other fall on same level, initial encounter; Y93.89 Activity, other specified; Y92.89 Other specified places as the place of occurrence of the external cause; Y99.8 Other external cause status; D69.59 Other secondary thrombocytopenia
CPT/HCPCS: 36415; 72158; 80048; 80053; 81001; 83735; 85025; 87635; 99285; G0378; J3411; J3475; J3480; A9575; J2060; J7030; J7040

== ENCOUNTER 2020-01-11 15:45 | Emergency (ER) | payer SELFPAY ==
[~2020-01-11] VITALS: Ht 157.5 cm; Wt 114.0 kg
[~2020-01-11 15:45] MED LIST changes: +ALBU90AE2 INH; +PREG150C PO
[2020-01-11 15:49] VITALS: BP 116/93
[2020-01-11] MEDS ORDERED: DIPH,PERTUSS(ACELL),TET VAC/PF 0.5 ML IM-VACC ONE ×2 (16:00→16:51)
--- NOTE | 2020-01-11 16:37 | NUR ---
PT TO ROOM FROM LOBBY P INCREASE IN PAIN. RADIOLOGY UNABLE TO COMPLETE ORDERED TEST SECONDARY TO PT'S DISCOMFORT.
--- NOTE | 2020-01-11 16:54 | NUR ---
BREAK RN: CONTACT WITH PT, 59 YR OLD FEMALE HERE WITH C/O "I FELL AND CUT MY LEFT HIP. I HAVE A BAD SPINE AND I DONT WALK VERY WELL" PT LAYING ON GURNEY, NO ACUTE DISTRESS NOTED.
--- NOTE | 2020-01-11 17:03 | NUR ---
pt to radiology via brittany
--- NOTE | 2020-01-11 17:17 | NUR ---
TASK RN: PT CHART REVIEWED AND PLACED FOR RECHECK.
--- NOTE | 2020-01-11 17:22 | NUR ---
Alex RN note: Pt's to nurse's station, reports pt needs to use the bathroom. This RN entered pt room with pt's . Pt reports she needs to urinate and is unable to ambulate. Pt placed on bedpan to void. Pt able to void, reports relief of need. Evelyn care provided to pt. Pt positioned for comfort in bed, denies other needs.
[2020-01-11] MEDS ORDERED: LIDOCAINE-MPF 1%, 5ML ONE (17:43)
--- NOTE | 2020-01-11 17:46 | NUR ---
JOANIE PULLED FOR PROVIDER ADMIN.
--- NOTE | 2020-01-11 17:59 | NUR ---
MD AT BEDSIDE TO UPDATE PT ON POC.
[2020-01-11] MEDS ORDERED: LIDOCAINE-MPF 1%, 5ML INFIL ONE (18:00)
--- NOTE | 2020-01-11 18:23 | NUR ---
PROVIDER AT BEDSIDE FOR SUTURES.
== END 2020-01-11 19:13 | disposition home or self-care (01) ==
LOC: ED 17:30
DX: S71.112A Laceration without foreign body, left thigh, initial encounter (principal); I10 Essential (primary) hypertension; W01.0XXA Fall on same level from slipping, tripping and stumbling without subsequent striking against object, initial encounter; Y93.01 Activity, walking, marching and hiking; Y92.009 Unspecified place in unspecified non-institutional (private) residence as the place of occurrence of the external cause; Y99.8 Other external cause status
CPT/HCPCS: 12032; 90471; 90715; 99285

== ENCOUNTER → 2020-04-21 | Outpatient (CLI) | payer BC ==
[~2020-04-21] MED LIST changes: +FOLI-17 PO; +MULT-484 PO; +OMEP-110 PO; +SUCR1TAB33 PO; +THIA100T67 PO
== END | disposition home or self-care (01) ==
LOC: CFH 14:05
PROVIDERS: ATTEND Nurse Practitioner
DX: M85.88 Other specified disorders of bone density and structure, other site (principal); M81.0 Age-related osteoporosis without current pathological fracture
CPT/HCPCS: 77080